=== PATIENT | male | born 1960 | race Caucasian/White ===

== ENCOUNTER → 2020-11-28 | Outpatient (CLI) | payer OTHER ==
[~2020-11-28] MED LIST: INSU100I9 SQ-INSULIN; OMNIPAQUE 350 MG/ML, 100ML BOTTLE ONE
== END | disposition home or self-care (01) ==
LOC: CFH 08:26
PROVIDERS: ATTEND Nurse Practitioner Family
DX: N20.0 Calculus of kidney (principal); N28.1 Cyst of kidney, acquired; K82.0 Obstruction of gallbladder; R10.32 Left lower quadrant pain; R80.9 Proteinuria, unspecified; R82.4 Acetonuria; B37.2 Candidiasis of skin and nail; M51.36 Other intervertebral disc degeneration, lumbar region
CPT/HCPCS: 74177; 82565; Q9967

== ENCOUNTER 2020-12-22 08:00 | Outpatient (CLI) | payer BC, OTHER ==
[~2020-12-22 08:00] MED LIST changes: -OMNIPAQUE 350 MG/ML, 100ML BOTTLE ONE
[2020-12-22] MEDS ORDERED: LISI-167 PO (09:44)
[2020-12-22] MEDS ORDERED: atorvastatin PO (09:44)
[2020-12-22] MEDS ORDERED: NPH,100I4 SC (09:44)
[2020-12-22] MEDS ORDERED: omeprazole PO (09:44)
[2020-12-22] MEDS ORDERED: ALLO300T PO (09:44)
[2020-12-22] MEDS ORDERED: METF1000 PO (09:44)
[2020-12-22 10:51] LABS: BASOPHILS % (AUTO) 1 % (0-1); EOSINOPHILS % (AUTO) 4 % (1-7); LYMPHOCYTES % (AUTO) 19 % (22-44); MD NO; MEAN CORPUSCULAR HEMOGLOBIN 30.6 pg (27.5-34.5); MEAN CORPUSCULAR HGB CONC 32.7 g/dL (33.2-36.2); MEAN PLATELET VOLUME 8.8 fL (7.4-10.4); MONOCYTES % (AUTO) 7 % (2-9); NEUTROPHILS % (AUTO) 70 % (42-75); PLATELET COUNT 157 x10^3/uL (130-400); RED BLOOD COUNT 5.05 x10^6/uL (4.38-5.82); RED CELL DISTRIBUTION WIDTH 15.1 % (9.4-14.8)
[2020-12-22 11:04] LABS: ALBUMIN 3.5 g/dL (3.4-5.0); ANION GAP 3 mmol/L (5-15); CHLORIDE 110 mmol/L (98-107)
[2020-12-22 11:33] LABS: % IRON SATURATION 2 % (20-55); ALANINE AMINOTRANSFERASE 36 U/L (12-78); ALKALINE PHOSPHATASE 83 U/L (45-117); BILIRUBIN,TOTAL 0.5 mg/dL (0.2-1.0); CREATININE 1.22 mg/dL (0.7-1.3); IRON LEVEL 8 mcg/dL (65-175); PREALBUMIN 20.5 mg/dL (20.0-40.0); TOTAL IRON BINDING CAPACITY 458 mcg/dL (250-450); TOTAL PROTEIN 7.5 g/dL (6.4-8.2); TRANSFERRIN 265 mg/dL (200-360)
== END 2020-12-22 23:59 | disposition home or self-care (01) ==
LOC: STAR 08:00
PROVIDERS: ATTEND Thoracic Surgery (Cardiothoracic Vascular Surgery)
DX: Z01.812 Encounter for preprocedural laboratory examination (principal); Z20.822 Contact with and (suspected) exposure to COVID-19; R94.31 Abnormal electrocardiogram [ECG] [EKG]
CPT/HCPCS: 36415; 71046; 80053; 82306; 82607; 82728; 82746; 83540; 83550; 83970; 84134; 84425; 84466; 85025; 93005; U0003